=== PATIENT | male | born 1935 | race Caucasian/White ===

== ENCOUNTER 2016-08-27 21:38 | Emergency (ER) | payer OTHER, MEDICARE ==
[2016-08-27 21:44] VITALS: BP 165/81; PULSE 83; TEMP 98.1; BMI 21.6
[2016-08-27 22:12] LABS: MCH 28.7 pg (25.7-33.7); MCHC 33.5 g/dl (32.0-35.9); MEAN CELL VOLUME 85.7 fl (80-96); MEAN PLT VOLUME 7.8 fl (7.5-11.1); PLATELET COUNT 168 K/MM3 (134-434); RDW 14.9 % (11.9-15.9); WHITE BLOOD COUNT 7.8 K/mm3 (4.0-10.0)
[2016-08-27 22:35] LABS: ALBUMIN 3.7 g/dl (3.4-5.0); ALK PHOS 72 U/L (45-117); ANION GAP 4 (8-16); BILIRUBIN,TOTAL 0.3 mg/dL (0.2-1.0); CALCIUM 8.8 mg/dL (8.5-10.1); CO2 34 mmol/L (21-32); GLUCOSE,RANDOM 99 mg/dL (74-106); SGOT/AST 15 U/L (15-37); SGPT/ALT 16 U/L (12-78); TOT PROT 6.4 g/dl (6.4-8.2)
--- NOTE | 2016-08-28 00:04 | PDOC ---
History of Present Illness - General Chief Complaint: Injury Stated Complaint: FALL Time Seen by Provider: 08/27/16 21:41 History Source: Patient Exam Limitations: No Limitations - History of Present Illness Initial Comments: 08/27/16 21:50 81yo Male patient presents to ED c/o fall. 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 While attempting to help her up, patient fell over striking his head and injuring right shoulder. He denies LOC, or neck pain. He denies CP, Abd pain, n/v/d, back pain, diff breathing, or any other complaints at this time. Occurred: reports: just prior to arrival Severity: reports: moderate Pain Location: reports: head, upper extremity Method of Injury: Yes: fall Modifying Factors: worse with: None, cold therapy, immobilization, pain medication, rest, other Loss of Consciousness: no loss of consciousness Associated Symptoms (Fall): denies symptoms Past History - Travel Traveled outside of the country in the last 30 days: No Close contact w/someone who was outside of country & ill: No - Past Medical History Allergies/Adverse Reactions: Allergies Allergy/AdvReac Type Severity Reaction Status Date / Time No Known Drug Allergies Allergy Verified 08/27/16 21:39 Home Medications: Ambulatory Orders Acetaminophen [Tylenol .Regular Strength -] 650 mg PO Q6H PRN #0 tablet Amlodipine Besylate [Norvasc -] 5 mg PO DAILY #0 tablet 11/08/15 Cholecalciferol (Vitamin D3) [Vitamin D3 -] 1,000 unit PO DAILY #0 tab 11/08/15 Docusate Sodium [Colace -] 100 mg PO BID #0 capsule 11/08/15 Metoprolol Succinate [Toprol XL -] 25 mg PO BID #0 tab.sr.24h 11/08/15 Anemia: No Asthma: No Cardiac Disorders: Yes COPD: No HTN: Yes Hypercholesterolemia: Yes Suicide Attempt (Hx): No - Surgical History Abdominal Surgery: (Hernia Repair) Cardiac Surgery: Yes (PACEMAKER) Orthopedic Surgery: Yes (Bilateral Hip) - Immunization History Td Vaccination: No Immunization Up to Date: Yes - Psycho/Social/Smoking Cessation Hx Anxiety: No Suicidal Ideation: No Smoking Status: No Smoking History: Former smoker Have you smoked in the past 12 months: No Number of Cigarettes Smoked Daily: 0 If you are a former smoker, when did you quit?: 50 years ago Information on smoking cessation initiated: No 'Breaking Loose' booklet given: 04/26/16 Hx Alcohol Use: No Drug/Substance Use Hx: No Substance Use Type: None Hx Substance Use Treatment: No Trauma Specific PMHX - Complaint Specific PMHX Arthritis: No Back Injury: No Neck Injury: No Hx Sacro Iliac Joint Dysfunction: No Review of Systems - Review of Systems Able to Perform ROS?: Yes Is the patient limited Malay proficient: No Constitutional: No: Chills, Fever Respiratory: No: Cough, Orthopnea, Shortness of Breath, Stridor, Wheezing, Productive cough, Hemoptysis Cardiac (ROS): No: Chest Pain, Lightheadedness, Palpitations, Syncope, Chest Tightness ABD/GI: No: Diarrhea, Nausea, Poor Appetite, Poor Fluid Intake, Rectal Bleeding , Vomiting, Abdominal cramping : No: Burning, Dysuria, Discharge, Frequency, Flank Pain, Pain, Urgency Musculoskeletal: No: Back Pain, Gout, Joint Pain, Muscle Pain Integumentary: No: Erythema, Rash Neurological: No: Headache, Paresthesia, Seizure, Tingling, Tremors, Weakness, Unsteady Gait, Ataxia, Dizziness All Other Systems: Reviewed and Negative *Physical Exam - Vital Signs Last Vital Signs Temp Pulse Resp BP Pulse Ox 98.1 F 83 18 165/81 96 08/27/16 21:40 08/27/16 21:40 08/27/16 21:40 08/27/16 21:40 08/27/16 21:40 - Physical Exam General Appearance: Yes: Nourished, Appropriately Dressed, Mild Distress. No: Apparent Distress, Moderate Distress, Severe Distress HEENT: positive: EOMI, ERMA, Normal ENT Inspection, Normal Voice, Symmetrical, TMs Normal, Pharynx Normal. negative: Pharyngeal Erythema, Tonsillar Exudate, Tonsillar Erythema, Nasal Congestion, Rhinorrhea, TM Bulging, TM Dull, TM Erythema Neck: positive: Trachea midline, Supple. negative: Tender, Rigid, Decreased range of motion, Stridor, Lymphadenopathy (R), Lymphadenopathy (L), Rigidity, Tender lateral, Tender midline Respiratory/Chest: positive: Lungs Clear, Decreased Breath Sounds. negative: Chest Tender, Respiratory Distress, Accessory Muscle Use, Labored Respiration, Rapid RR, Paradoxal Breathing, Crackles, Rales, Rhonchi, Stridor, Wheezing Cardiovascular: positive: Regular Rhythm, Regular Rate. negative: Edema, JVD, Murmur Gastrointestinal/Abdominal: positive: Normal Bowel Sounds, Soft. negative: Distended, Guarding, Rebound, Tenderness Musculoskeletal: positive: Normal Inspection. negative: CVA Tenderness Extremity: positive: Normal Capillary Refill, Normal Inspection, Tender (Right Shoulder with decreased ROM) Integumentary: positive: Normal Color, Dry, Warm. 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 NML intact, Fully Oriented, Alert, Normal Mood/ Affect, Normal Response, Motor Strength 11/03 ED Treatment Course - LABORATORY CBC & Chemistry Diagram: 08/27/16 22:03 08/27/16 22:03 - ADDITIONAL ORDERS Additional order review: Laboratory Results 08/27/16 22:03 Sodium 141 Potassium 3.7 Chloride 103 Carbon Dioxide 34 H Anion Gap 4 L BUN 21 H Creatinine 1.0 Creat Clearance w eGFR > 60 Random Glucose 99 Calcium 8.8 Total Bilirubin 0.3 D AST 15 D ALT 16 D Alkaline Phosphatase 72 Total Protein 6.4 D Albumin 3.7 D 08/27/16 22:03 RBC 4.90 D MCV 85.7 MCHC 33.5 RDW 14.9 MPV 7.8 - RADIOLOGY Radiology Studies Ordered: Category Date Time Status CERVICAL SPINE CT W/O CONTR [CT] Stat CT Scan 08/27/16 21:[address] WITHOUT CONTRAST [CT] Stat CT Scan 08/27/16 21:53 Taken CHEST PA & LAT [RAD] Stat Radiology 08/27/16 21:53 Taken HUMERUS-RIGHT [RAD] Stat Radiology 08/27/16 21:53 Taken SHOULDER-RIGHT [RAD] Stat Radiology 08/27/16 21:53 Taken *DC/Admit/Observation/Transfer Diagnosis at time of Disposition: Head injury Qualifiers: Encounter type: initial encounter Qualified Code(s): S09.90XA - Unspecified injury of head, initial encounter Right shoulder pain Qualifiers: Chronicity: acute Qualified Code(s): M25.511 - Pain in right shoulder - Discharge Dispostion Disposition: HOME Condition at time of disposition: Improved Admit: No - Referrals Referrals: Troy Pham MD [Staff Physician] - - Patient Instructions Printed Discharge Instructions: DI for Closed Head Injury, DI for Shoulder Pain Additional Instructions: FOLLOW UP WITH ORTHOPEDIC DISCUSSED. CALL TO SCHEDULE APPOINTMENT. KEEP ARM IN SLING/IMMOBILIZER UNTIL SEEN BY ORTHOPEDIC. APPLY COLD COMPRESS TO AFFECTED AREA NEEDED. MOTRIN OR TYLENOL FOR PAIN. NO LIFTING HEAVY OBJECTS OR ITEMS GREATER THAN 5LBS. Print Language: ALBANIAN
[2016-08-28] MEDS ORDERED: ACETAMINOPHEN 325 MG TABLET (FP) PO ONE (00:21)
[2016-08-28] MEDS ORDERED: ACETAMINOPHEN 325 MG TABLET (FP) ONE (00:32)
--- NOTE | 2016-08-28 12:22 | EKG ---
Test Reason : Blood Pressure : / mmHG Vent. Rate : 082 BPM Atrial Rate : 082 BPM P-R Int : 150 ms QRS Dur : 160 ms QT Int : 452 ms P-R-T Axes : 055 -76 089 degrees QTc Int : 528 ms Atrial-sensed ventricular-paced rhythm WITH OCCASIONAL PREMATURE VENTRICULAR COMPLEXES ABNORMAL ECG WHEN COMPARED WITH ECG OF 01-NOV-2015 09:16, PREMATURE VENTRICULAR COMPLEXES ARE NOW PRESENT VENT. RATE HAS INCREASED BY 11 BPM Confirmed by RAFAEL RAGLAND MD ([id number]) on 08/28/2016 12:21:50 PM Referred By: Confirmed By:RAFAEL RAGLAND MD
== END 2016-08-28 00:57 | disposition home or self-care (01) ==
LOC: JER 21:38
DX: S09.8XXA Other specified injuries of head, initial encounter (principal); M25.511 Pain in right shoulder; W01.198A Fall on same level from slipping, tripping and stumbling with subsequent striking against other object, initial encounter; Y93.F2 Activity, caregiving, lifting; Y92.098 Other place in other non-institutional residence as the place of occurrence of the external cause; Y99.2 Volunteer activity; I10 Essential (primary) hypertension; E78.00 Pure hypercholesterolemia, unspecified; Z95.0 Presence of cardiac pacemaker
CPT/HCPCS: 36415; 70450-TC; 71020-TC; 72125-TC; 73030-TC-RT; 73060-TC-RT; 80053; 85027; 86850; 86900; 86901; 93005; 93010; 99284-25

== ENCOUNTER 2017-01-15 12:11 | Emergency (ER) | payer OTHER, MEDICARE ==
[2017-01-15 12:19] VITALS: BP 162/109; PULSE 105; TEMP 98; BMI 21.7
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
[2017-01-15 13:57] LABS: TROPONIN I < 0.02 ng/ml (0.00-0.05)
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
--- NOTE | 2017-01-15 16:58 | EKG ---
Test Reason : Blood Pressure : / mmHG Vent. Rate : 089 BPM Atrial Rate : 089 BPM P-R Int : 130 ms QRS Dur : 164 ms QT Int : 432 ms P-R-T Axes : 027 -76 086 degrees QTc Int : 525 ms Atrial-sensed ventricular-paced rhythm ABNORMAL ECG WHEN COMPARED WITH ECG OF 27-AUG-2016 22:10, PREMATURE VENTRICULAR COMPLEXES ARE NO LONGER PRESENT VENT. RATE HAS INCREASED BY 7 BPM Confirmed by ELMA PLEITEZ, KATIE ([id number]) on 01/15/2017 4:57:29 PM Referred By: Confirmed By:KATIE WILLS MD
== END 2017-01-15 16:41 | disposition home or self-care (01) ==
LOC: JER 12:11
DX: S22.32XA Fracture of one rib, left side, initial encounter for closed fracture (principal); V43.62XA Car passenger injured in collision with other type car in traffic accident, initial encounter; Y92.414 Local residential or business street as the place of occurrence of the external cause; Y93.89 Activity, other specified; Y99.9 Unspecified external cause status; I10 Essential (primary) hypertension; E78.00 Pure hypercholesterolemia, unspecified
CPT/HCPCS: 36415; 71020-TC; 71101-TC; 82550; 84484; 85610; 93005; 93010; 99282-25